=== PATIENT | male | born 1970 | race Two or more races ===

== ENCOUNTER → 2017-05-04 | Outpatient (CLI) | payer BC ==
--- NOTE | 2017-05-04 23:20 | MR ---
EXAMINATION TYPE: MR ankle LT wo con DATE OF EXAM: 05/04/2017 COMPARISON: NONE HISTORY: Lt ankle pain/swelling S/P fall Standard multiplanar, multisequence MRI departmental protocol Multiplanar, multisequence images of the left ankle were acquired. FINDINGS: The Achilles tendon is intact. Plantar fascia appears normal. The medial and lateral flexor tendons of the ankle appear intact. There is ankle joint effusion with some complex fluid at the ant erior aspect of the ankle joint. I see no focal bone destruction. The collateral ligaments appear int act. There is minimal subcutaneous edema around the ankle joint. IMPRESSION: No fracture. Mild subcutaneous edema. No evidence of ligament or tendon tear. Ankle joint effusion with complex 13 mm anterior synovial cyst.
== END | disposition home or self-care (01) ==
LOC: RADMRIMAIN 21:05
PROVIDERS: ATTEND Orthopaedic Surgery Foot and Ankle Surgery
DX: M71.372 Other bursal cyst, left ankle and foot (principal); M25.472 Effusion, left ankle

== ENCOUNTER 2017-09-12 21:50 | Emergency (ER) | payer BC ==
[2017-09-12 21:56] VITALS: RESP 18
[2017-09-12] MEDS ORDERED: KETOROLAC 30 MG/ML 1 ML VIAL IVP STA (22:06)
[2017-09-12] MEDS ORDERED: SODIUM CHLORIDE 0.9% 1,000 ML IV STA (22:06)
--- NOTE | 2017-09-12 22:12 | ED ---
Abdominal Pain HPI - General Chief Complaint: Abdominal Pain Stated Complaint: gallbladder problems Time Seen by Provider: 09/12/17 21:57 Source: patient Mode of arrival: ambulatory Limitations: no limitations - History of Present Illness Initial Comments: Patient presents with pain in right upper quadrant. Patient states pain has been intermittent all day today since 3 AM this morning. Patient states pain is sharp and stabbing and cramping. Denies association with food. Denies nausea or vomiting. Denies constipation or diarrhea. Denies urinary symptoms. Denies fevers, chills. Patient states he had similar pain a year ago, was scheduled to have an ultrasound done however he broke his leg and never completed the ultrasound. Patient is concerned about gallbladder problem. Pain radiates to right mid back MD Complaint: abdominal pain - Related Data Home Medications Medication Instructions Recorded Confirmed Lisinopril [Prinivil] 20 mg PO DAILY 09/12/17 09/12/17 Allergies Allergy/AdvReac Type Severity Reaction Status Date / Time No Known Allergies Allergy Verified 09/12/17 22:29 Review of Systems ROS Statement: Those systems with pertinent positive or pertinent negative responses have been documented in the HPI. ROS Other: All systems not noted in ROS Statement are negative. Constitutional: Denies: fever, chills Eyes: Denies: vision change ENT: Denies: throat pain Respiratory: Denies: cough Cardiovascular: Denies: chest pain Endocrine: Denies: fatigue Gastrointestinal: Reports: abdominal pain. Denies: nausea, vomiting, diarrhea, constipation, hematemesis, melena, hematochezia Genitourinary: Denies: urgency, dysuria, frequency, hematuria Musculoskeletal: Denies: back pain Skin: Denies: rash Neurological: Denies: headache Past Medical History Past Medical History: Hypertension History of Any Multi-Drug Resistant Organisms: None Reported Past Surgical History: Orthopedic Surgery Additional Past Surgical History / Comment(s): knee x2 Past Psychological History: No Psychological Hx Reported Smoking Status: Current every day smoker Past Alcohol Use History: Occasional Past Drug Use History: None Reported General Exam - General Exam Comments Initial Comments: Sitting up in bed. No acute distress. Conversing normally. Calm, pleasant. Well appearing. Well-groomed well-dressed. Not appear in pain. Limitations: no limitations General appearance: alert, in no apparent distress Head exam: Present: atraumatic, normocephalic Eye exam: Present: normal appearance, PERRL, EOMI ENT exam: Present: normal exam, mucous membranes moist Neck exam: Present: normal inspection Respiratory exam: Present: normal lung sounds bilaterally. Absent: respiratory distress, wheezes, rales Cardiovascular Exam: Present: regular rate, normal rhythm GI/Abdominal exam: Present: soft, other (McBurney's negative Nina sign negative). Absent: distended, tenderness, guarding, rebound, rigid, hernia Extremities exam: Present: normal inspection Neurological exam: Present: alert, oriented X3 Psychiatric exam: Present: normal affect, normal mood Skin exam: Present: warm, dry, intact, normal color. Absent: rash Course Vital Signs 09/12/17 21:51 Temperature 97.8 F Pulse Rate 80 Respiratory 18 Rate Blood Pressure 130/84 O2 Sat by Pulse 100 Oximetry Medical Decision Making - Medical Decision Making Toradol ordered. White blood cell count 13. Liver function tests within normal range. Ultrasound shows no signs of hydronephrosis, no signs of acute cholecystitis, no signs of gallstones. Patient updated without results. States pain currently resolved. Abdomen remains nontender. Discussed UA for signs of kidney infection or blood, patient declines, states she has regular urinalysis done at his work. States she has a history of microscopic hematuria which has been there for "years". Patient feels comfortable being discharged home this time. Agrees to follow primary care physician one to 2 days for reevaluation repeat blood work given elevated white blood cell count. At this time I do not fill patient has a life- threatening etiology of symptoms, at this time do not believe patient has diverticulitis, renal stone, abdominal aneurysms or vascular disease causing his symptoms. We'll discharge this time, patient was happy with plan of care. Asymptomatic at time of discharge. - Lab Data Result diagrams: 09/12/17 22:20 09/12/17 22:20 Lab Results 09/12/17 09/12/17 Range/Units 22:20 22:20 WBC 13.1 H (3.8-10.6) k/uL RBC 5.52 (4.30-5.90) m/uL Hgb 15.1 (13.0-17.5) gm/dL Hct 46.8 (39.0-53.0) % MCV 84.8 (80.0-100.0) fL MCH 27.4 (25.0-35.0) pg MCHC 32.4 (31.0-37.0) g/dL RDW 14.7 (11.5-15.5) % Plt Count 268 (150-450) k/uL Neutrophils % 75 % Lymphocytes % 15 % Monocytes % 8 % Eosinophils % 1 % Basophils % 0 % Neutrophils # 9.8 H (1.3-7.7) k/uL Lymphocytes # 1.9 (1.0-4.8) k/uL Monocytes # 1.0 (0-1.0) k/uL Eosinophils # 0.1 (0-0.7) k/uL Basophils # 0.0 (0-0.2) k/uL Sodium 140 (137-145) mmol/L Potassium 4.3 (3.5-5.1) mmol/L Chloride 107 (98-107) mmol/L Carbon Dioxide 21 L (22-30) mmol/L Anion Gap 12 mmol/L BUN 16 (9-20) mg/dL Creatinine 0.90 (0.66-1.25) mg/dL Est GFR (MDRD) Af Amer >60 (>60 ml/min/1.73 sqM) Est GFR (MDRD) Non-Af >60 (>60 ml/min/1.73 sqM) Glucose 102 H (74-99) mg/dL Calcium 9.7 (8.4-10.2) mg/dL Total Bilirubin 0.4 (0.2-1.3) mg/dL AST 23 (17-59) U/L ALT 35 (21-72) U/L Alkaline Phosphatase 71 (38-126) U/L Total Protein 6.6 (6.3-8.2) g/dL Albumin 3.9 (3.5-5.0) g/dL Lipase 164 (23-300) U/L Disposition Clinical Impression: Abdominal pain Disposition: HOME SELF-CARE Condition: Good Instructions: Abdominal Pain (ED) Additional Instructions: Follow-up with her primary care physician in one to 2 days for reevaluation and repeat blood work. Referrals: Sarthak Phillips DO [Primary Care Provider] - 1-2 days
[2017-09-12] MEDS ORDERED: ONDANSETRON 4 MG/2 ML VIAL IVP STA (22:28)
[2017-09-12 22:41] LABS: Basophils % (A) 0 %; Eosinophils # (A) 0.1 k/uL (0-0.7); Eosinophils % (A) 1 %; HCT 46.8 % (39.0-53.0); HGB 15.1 gm/dL (13.0-17.5); Lymphocytes # (A) 1.9 k/uL (1.0-4.8); Lymphocytes % (A) 15 %; MCH 27.4 pg (25.0-35.0); MCHC 32.4 g/dL (31.0-37.0); MCV 84.8 fL (80.0-100.0); Monocytes % (A) 8 %; Neutrophils # (A) 9.8 k/uL (1.3-7.7); Neutrophils % (A) 75 %; Platelet Count 268 k/uL (150-450); RBC 5.52 m/uL (4.30-5.90); RDW 14.7 % (11.5-15.5); WBC 13.1 k/uL (3.8-10.6)
[2017-09-12 22:57] LABS: ALT 35 U/L (21-72); AST 23 U/L (17-59); Albumin 3.9 g/dL (3.5-5.0); Alkaline Phosphatase 71 U/L (38-126); Anion Gap 12 mmol/L; Blood Urea Nitrogen 16 mg/dL (9-20); Calcium 9.7 mg/dL (8.4-10.2); Carbon Dioxide 21 mmol/L (22-30); Chloride 107 mmol/L (98-107); Glucose 102 mg/dL (74-99); Lipase 164 U/L (23-300); Potassium 4.3 mmol/L (3.5-5.1); Sodium 140 mmol/L (137-145); Total Bilirubin 0.4 mg/dL (0.2-1.3); Total Protein 6.6 g/dL (6.3-8.2)
--- NOTE | 2017-09-12 23:20 | US ---
EXAMINATION TYPE: US abdomen complete DATE OF EXAM: 09/12/2017 COMPARISON: NONE CLINICAL HISTORY: abdominal pain. EXAM MEASUREMENTS: Liver Length: 14.8 cm Gallbladder Wall: 0.2 cm CBD: 0.4 cm Spleen: 9.1 cm Right Kidney: 11.9 x 6.1 x 5.3 cm Left Kidney: 12.0 x 5.5 x 5.3 cm Limit due bowel gas. Pancreas: Tail obscured by overlying bowel gas Liver: wnl Gallbladder: wnl Evidence for sonographic Nina's sign: No CBD: wnl Spleen: wnl Right Kidney: wnl Left Kidney: Anechoic area noted measuring approximately 1.5 x 1.7 x 1.8 cm likely a simple cyst Upper IVC: wnl Abd Aorta: wnl There appears to be an anechoic are in the left renal resembling that of a simple cyst. IMPRESSION: No gallstones or dilated ducts. Small left renal cortical cyst. No free fluid.
[2017-09-12 23:45] VITALS: BP 134/80; PULSE 66; TEMP 98.1
== END 2017-09-12 23:48 | disposition home or self-care (01) ==
LOC: EC 21:50
DX: R10.9 Unspecified abdominal pain (principal); D72.829 Elevated white blood cell count, unspecified; I10 Essential (primary) hypertension; F17.200 Nicotine dependence, unspecified, uncomplicated; Z79.899 Other long term (current) drug therapy
CPT/HCPCS: 36415; 80053; 83690; 85025; 76700; 99284; 96374; 96375; 96361; J2405; J1885

== ENCOUNTER 2017-09-13 06:46 | Emergency (ER) | payer BC ==
[2017-09-13] MEDS ORDERED: SODIUM CHLORIDE 0.9% 1,000 ML IV STA (07:36)
[2017-09-13] MEDS ORDERED: KETOROLAC 30 MG/ML 1 ML VIAL IVP STA (07:36)
--- NOTE | 2017-09-13 07:43 | ED ---
Abdominal Pain HPI - General Chief Complaint: Abdominal Pain Stated Complaint: ABDOMNINAL PAIN, WAS HERE EARLIER Time Seen by Provider: 09/13/17 07:15 Source: patient, RN notes reviewed, old records reviewed Mode of arrival: ambulatory Limitations: no limitations - History of Present Illness Initial Comments: This is a 47-year-old male with a benign past medical history who presents with weights of upper abdominal pain he states is spasm and crampy like in nature goes also across to his back is intermittent on and off at its worse is 9-10/10 in severity currently is about a 5/10 he states he just doesn't feel quite right. He has no nausea vomiting no diarrhea but some loose stool at this time. Of note he was seen last night and evaluated ultrasound did not show anything significant except for an and echoic area in the left kidney lab work showed mildly elevated white blood cell count likewise first is within normal limits no UA was obtained. He has no dysuria no hematuria. MD Complaint: abdominal pain - Related Data Home Medications Medication Instructions Recorded Confirmed Lisinopril [Prinivil] 20 mg PO DAILY 09/12/17 09/13/17 Previous Rx's Medication Instructions Recorded Dicyclomine [Bentyl] 10 mg PO TID #10 capsule 09/13/17 Ketorolac [Toradol] 10 mg PO Q6HR #20 tab 09/13/17 Allergies Allergy/AdvReac Type Severity Reaction Status Date / Time No Known Allergies Allergy Verified 09/13/17 07:22 Review of Systems ROS Statement: Those systems with pertinent positive or pertinent negative responses have been documented in the HPI. ROS Other: All systems not noted in ROS Statement are negative. Past Medical History Past Medical History: Hypertension History of Any Multi-Drug Resistant Organisms: None Reported Past Surgical History: Orthopedic Surgery Additional Past Surgical History / Comment(s): knee x2, Past Psychological History: No Psychological Hx Reported Smoking Status: Current every day smoker Past Alcohol Use History: Occasional Past Drug Use History: None Reported General Exam - General Exam Comments Initial Comments: This is a well-developed well-nourished awake alert oriented times 3 male Limitations: no limitations General appearance: alert, anxious Head exam: Present: atraumatic, normocephalic, normal inspection Eye exam: Present: normal appearance, PERRL, EOMI. Absent: scleral icterus, conjunctival injection, periorbital swelling ENT exam: Present: normal exam, mucous membranes moist Neck exam: Present: normal inspection. Absent: tenderness, meningismus, lymphadenopathy Respiratory exam: Present: normal lung sounds bilaterally. Absent: respiratory distress, wheezes, rales, rhonchi, stridor Cardiovascular Exam: Present: regular rate, normal rhythm, normal heart sounds. Absent: systolic murmur, diastolic murmur, rubs, gallop, clicks GI/Abdominal exam: Present: soft, normal bowel sounds, other (No overt tenderness palpation at this time. None over the right upper quadrant epigastric left upper quadrant or lower abdomen). Absent: distended, tenderness , guarding, rebound, rigid, bruit, pulsatile mass, hernia Rectal exam: Present: deferred Extremities exam: Present: normal inspection, full ROM, normal capillary refill. Absent: tenderness, pedal edema, joint swelling, calf tenderness Back exam: Present: normal inspection Neurological exam: Present: alert, oriented X3, CN II-XII intact Psychiatric exam: Present: normal affect, normal mood Skin exam: Present: warm, dry, intact, normal color. Absent: rash Course Vital Signs 09/13/17 06:49 Temperature 98.5 F Pulse Rate 77 Respiratory 18 Rate Blood Pressure 162/93 O2 Sat by Pulse 100 Oximetry - Reevaluation(s) Reevaluation #1: 09/13/17 08:54 Patient is feeling much improved after IV Toradol. Medical Decision Making - Medical Decision Making I did reevaluate patient did discuss the findings with him initially much improved he does have a prior history of hematuria which is been completely worked up his ultrasound was negative for acute processes except for the renal cysts it was noted x-ray shows evidence of enteritis. The current presentation is likely consistent with an enteritis/spastic colon. He'll be discharged on appropriate medication. - Lab Data Lab Results 09/13/17 Range/Units 07:45 Urine Color Yellow Urine Appearance Clear (Clear) Urine pH 6.0 (5.0-8.0) Ur Specific [place] 1.028 (1.001-1.035) Urine Protein 1+ H (Negative) Urine Glucose (UA) Negative (Negative) Urine Blood Moderate H (Negative) Urine Nitrite Negative (Negative) Urine Bilirubin Negative (Negative) Urine Urobilinogen 2.0 (<2.0) mg/dL Ur Leukocyte Esterase Negative (Negative) Urine RBC 23 H (0-5) /hpf Urine WBC 3 (0-5) /hpf Urine Bacteria Rare H (None) /hpf Urine Mucus Many H (None) /hpf - Radiology Data Radiology results: report reviewed (I did review the imaging and report no acute findings except evidence of enteritis is noted however.), image reviewed Disposition Clinical Impression: Abdominal pain, Enteritis, Spasmatic colon Disposition: HOME SELF-CARE Condition: Good Instructions: Abdominal Pain (ED), Enteritis (ED), Irritable Bowel Syndrome (ED ) Prescriptions: Dicyclomine [Bentyl] 10 mg PO TID #10 capsule Ketorolac [Toradol] 10 mg PO Q6HR #20 tab Referrals: Sarthak Phillips DO [Primary Care Provider] - 1-2 days
--- NOTE | 2017-09-13 08:14 | XR ---
EXAMINATION TYPE: XR abdomen 1V DATE OF EXAM: 09/13/2017 CLINICAL DATA: 47-year-old male with right posterior back pain, PHH COMPARISON: None FINDINGS: Lung bases are clear. No evidence for free intraperitoneal air. A few scattered small air-fluid levels within the colon. No significant stool burden. No dilated smal l bowel or differential air-fluid levels. Air extends distally into the rectum. No suspicious calcifications identified. Mild rotary dextroconvex curvature of the lumbar spine. IMPRESSION: Scattered small colonic air-fluid levels are nonspecific. They could be transient or could reflect a mild ileus or enteritis. No evidence for bowel obstruction or free air.
[2017-09-13 08:38] LABS: Appearance,Urine Clear (Clear); Bacteria,Urine Rare /hpf; Bilirubin,Urine Negative (Negative); Blood,Urine Moderate (Negative); Color,Urine Yellow; Glucose,Urine (UA) Negative (Negative); Ketones,Urine 4+ (Negative); Leukocyte Esterase,Urine Negative (Negative); Mucus,Urine Many /hpf; Nitrite,Urine Negative (Negative); Protein,Urine 1+ (Negative); RBC,Urine 23 /hpf (0-5); Specific Gravity,Urine 1.028 (1.001-1.035); WBC,Urine 3 /hpf (0-5)
[2017-09-13 09:11] VITALS: BP 156/80; PULSE 60; RESP 16; TEMP 97.7
== END 2017-09-13 09:10 | disposition home or self-care (01) ==
LOC: EC 06:46
DX: K52.9 Noninfective gastroenteritis and colitis, unspecified (principal); K58.9 Irritable bowel syndrome, unspecified; I10 Essential (primary) hypertension; F17.200 Nicotine dependence, unspecified, uncomplicated; Z79.899 Other long term (current) drug therapy
CPT/HCPCS: 81001; 74018; 99284; 96374; 96361; J1885

== ENCOUNTER 2022-03-27 11:30 | Day surgery (SDC) | payer BC ==
[2022-03-25 16:18] VITALS: BMI 28.8
[~2022-03-27 11:30] MED LIST: LACTATED RINGERS 1,000 ML IV SCH; LIDOCAINE 1% (10MG/ML) FOR IV START INTRADERMA PRN
[2022-03-27 12:18] VITALS: TEMP 97.5
[2022-03-27] MEDS ORDERED: PROPOFOL 10 MG/ML 20 ML VIAL IV ONE (13:40)
--- NOTE | 2022-03-27 13:56 | P.PCN ---
Date of Procedure: 03/27/22 Procedure(s) Performed: BRIEF HISTORY: Patient is a 52 year-old pleasant white male scheduled for an elective colonoscopy as a part of screening for colorectal neoplasia. PROCEDURE PERFORMED: Colonoscopy with snare polypectomy. PREOPERATIVE DIAGNOSIS: Screening for colon cancer. IV sedation per Anesthesia. PROCEDURE: After informed consent was obtained, the patient, was brought into the endoscopy unit. IV sedation was administered by Anesthesia under continuous monitoring. Digital rectal examination was normal. Initially the Olympus CF-160 flexible video colonoscope was then inserted in the rectum, gradually advanced into the cecum without any difficulty. Careful examination was performed as the scope was gradually being withdrawn. Ileocecal valve and the appendiceal orifice were visualized and appeared normal. Prep was excellent. Mucosa of the cecum, ascending colon, appeared normal. In the transverse colon there was a 7 mm sessile polyp removed by snare polypectomy. Rest of the transverse colon, descending colon, sigmoid colon, and rectum appeared normal. Retroflexion was performed in the rectum and no lesions were seen. The patient tolerated the procedure well. IMPRESSION: 7 mm transverse colon polyp status post snare polypectomy Rest of the colon appeared normal RECOMMENDATIONS: Findings of this examination were discussed with the patient as well as his family. He was advised to follow with the biopsy results. If the biopsy reveals adenoma he can have a repeat colonoscopy in 5 years..
[2022-03-27 14:02] VITALS: RESP 15
[2022-03-27 14:20] VITALS: BP 107/69; PULSE 58
== END 2022-03-27 14:38 | disposition home or self-care (01) ==
LOC: ORWHC2ENDO 11:30
PROVIDERS: ATTEND Internal Medicine Gastroenterology
DX: Z12.11 Encounter for screening for malignant neoplasm of colon (principal); K63.5 Polyp of colon; I10 Essential (primary) hypertension
CPT/HCPCS: 88305; 45385; J2704